=== PATIENT | female | born 1955 | race African-American/Black ===

== ENCOUNTER 2019-04-24 10:16 | Emergency (ER) | payer BC, OTHER ==
--- NOTE | 2019-04-24 11:21 | ER Document Report ---
ED Medical Screen (RME) - General Chief Complaint: Abdominal Pain Stated Complaint: ABDOMINAL PAIN Time Seen by Provider: 04/24/19 11:15 Primary Care Provider: JENN CHOU MD [Primary Care Provider] - Follow up as needed Mode of Arrival: Ambulatory Information source: Patient Notes: 53-year-old female presents to ED for complaint of knot in her gum for a year. Knot to the left side of her upper abdomen. Her abdomen is painful and she is concerned because she has a history of stomach cancer with surgery in 2014. Vomited today with occasional vomiting and she also states she has a vaginal discharge she thinks she has a yeast infection. Denies any fevers at this time. She has a history of blood pressure diabetes type II hip replacement and eye surgery. Drink drinks daily and dips smokeless tobacco but no drug. States she is in the morning she states that blood and she has a history of a cancer treatment in her throat that was cut out. I have greeted and performed a rapid initial assessment of this patient. A comprehensive ED assessment and evaluation of the patient, analysis of test results and completion of medical decision making process will be conducted by an additional ED providers. S - Related Data Allergies/Adverse Reactions: acetaminophen [From Tylenol] Allergy (Verified 02/17/13 23:55) Penicillins Allergy (Verified 02/17/13 23:55) telmisartan [From Micardis] Allergy (Verified 02/17/13 23:55) Tetanus Vaccines and Toxoid [Tetanus] Allergy (Verified 02/17/13 23:52) Past Medical History - Past Medical History Cardiac Medical History: Reports: Hx Hypertension Neurological Medical History: Reports: Hx Migraine Endocrine Medical History: Reports: Hx Diabetes Mellitus Type 2 - Immunizations Hx Diphtheria, Pertussis, Tetanus Vaccination: Yes Physical Exam - Vital signs Vitals: Temp Pulse Resp BP Pulse Ox 98.6 F 123 H 20 219/108 H 97 04/24/19 10:29 04/24/19 10:29 04/24/19 10:04/24/19 10:04/24/19 10:29 Course - Vital Signs Vital signs: Temp Pulse Resp BP Pulse Ox 98.3 F 123 H 13 113/84 100 04/24/19 14:31 04/24/19 10:29 04/24/19 14:26 04/24/19 14:26 04/24/19 14:26 - Laboratory Result Diagrams: 04/24/19 11:36 04/24/19 11:36 Laboratory results interpreted by me: 04/24/19 04/24/19 04/24/19 10:36 11:36 12:48 Sodium 135.5 L Chloride 96 L Glucose 310 H POC Glucose 358 H AST 48 H Urine Protein 100 H Urine Glucose (UA) >=500 H Urine Ketones TRACE H Urine Blood SMALL H Urine Nitrite POSITIVE H Ur Leukocyte Esterase SMALL H Doctor's Discharge - Discharge Clinical Impression: Hypertension, Diabetes, UTI (urinary tract infection) Disposition: HOME, SELF-CARE Instructions: Diabetes ([facility]), Control of Diabetes During Illness ([facility]), Urinary Tract Infection ([facility]) Additional Instructions: Take your medicines as directed. Follow your diabetic diet. Please return here for any problems or any concerns. Prescriptions: Cephalexin Monohydrate [Keflex 500 mg Capsule] 500 mg PO TID #30 capsule Metformin HCl 500 mg PO BID #60 tablet Atenolol [Tenormin] 25 mg PO DAILY #30 tablet Referrals: JENN CHOU MD [Primary Care Provider] - Follow up as needed
[2019-04-24] MEDS ORDERED: NORMAL SALINE 1000 ML 1,000 ML IV ONE (11:22)
[2019-04-24] MEDS ORDERED: ONDANSETRON HCL INJ/PF 4 MG/2 ML SDV IV ONE (11:22)
[2019-04-24] MEDS ORDERED: METOPROLOL SUCCINATE 25 MG TAB.SR.24H PO ONE (11:50)
[2019-04-24] MEDS ORDERED: HYDRALAZINE HCL INJ/PF 20 MG/1 ML SDV IV ONE (11:51)
[2019-04-24 11:56] LABS: ABSOLUTE LYMPHOCYTES (AUTO) 1.6 10^3/uL (0.5-4.7); ABSOLUTE MONOCYTES (AUTO) 0.5 10^3/uL (0.1-1.4); ABSOLUTE NEUT (AUTO) 5.4 10^3/uL (1.7-8.2); BASOPHILS % (AUTO) 0.6 % (0-2); EOSINOPHILS % (AUTO) 0.1 % (0-6); HEMATOCRIT 41.5 % (36.0-47.0); HEMOGLOBIN 14.2 g/dL (12.0-15.5); LYMPHOCYTES % (AUTO) 21.1 % (13-45); MEAN CORPUSCULAR HEMOGLOBIN 30.8 pg (27.0-33.4); MEAN CORPUSCULAR HGB CONC 34.1 g/dL (32.0-36.0); MEAN CORPUSCULAR VOLUME 90 fl (80-97); MONOCYTES % (AUTO) 6.4 % (3-13); PLATELET COUNT 278 10^3/uL (150-450); RED CELL DISTRIBUTION WIDTH 11.8 % (11.5-14.0); SEGMENTED NEUTROPHILS % (AUTO) 71.8 % (42-78); TOTAL CELLS COUNTED % (AUTO) 100 %; VENOUS BLOOD BASE EXCESS 0.6 mmol/L; VENOUS BLOOD HCO3 25.7 mmol/L (20-32); VENOUS BLOOD PCO2 42.9 mmHg (35-63); VENOUS BLOOD PH 7.4 (7.30-7.42); WHITE BLOOD COUNT 7.6 10^3/uL (4.0-10.5)
--- NOTE | 2019-04-24 11:57 | ER Document Report ---
ED General - General Chief Complaint: Abdominal Pain Stated Complaint: ABDOMINAL PAIN Time Seen by Provider: 04/24/19 11:15 Primary Care Provider: JENN CHOU MD [Primary Care Provider] - Follow up as needed Mode of Arrival: Ambulatory Information source: Patient - HPI Patient complains to provider of: luq pain Onset: Other - for "some time" Context: 63 year old female with h/o head and neck cancer, stomach cancer, htn, dm has had increasing pain at left costal margin. She has been out of her medicines for about a year and the left sided pain has been worsening. Chews tobacco and drinks etoh. No fever or chills. Sugery for head and neck and stomach were at [facility]. Exacerbated by: Denies Relieved by: Denies - Related Data Allergies/Adverse Reactions: acetaminophen [From Tylenol] Allergy (Verified 02/17/13 23:55) Penicillins Allergy (Verified 02/17/13 23:55) telmisartan [From Micardis] Allergy (Verified 02/17/13 23:55) Tetanus Vaccines and Toxoid [Tetanus] Allergy (Verified 02/17/13 23:52) Past Medical History - General Information source: Patient - Social History Smoking Status: Never Smoker Chew tobacco use (# tins/day): Yes Frequency of alcohol use: Heavy Drug Abuse: None Family History: None Patient has suicidal ideation: No Patient has homicidal ideation: No - Past Medical History Cardiac Medical History: Reports: Hx Hypertension Neurological Medical History: Reports: Hx Migraine Endocrine Medical History: Reports: Hx Diabetes Mellitus Type 2 - Immunizations Hx Diphtheria, Pertussis, Tetanus Vaccination: Yes Review of Systems - Review of Systems Constitutional: No symptoms reported EENT: No symptoms reported Cardiovascular: See HPI Respiratory: No symptoms reported Gastrointestinal: See HPI Genitourinary: No symptoms reported Female Genitourinary: No symptoms reported Musculoskeletal: No symptoms reported Skin: No symptoms reported Hematologic/Lymphatic: No symptoms reported Neurological/Psychological: No symptoms reported Physical Exam - Vital signs Vitals: Temp Pulse Resp BP Pulse Ox 98.6 F 123 H 20 219/108 H 97 04/24/19 10:29 04/24/19 10:29 04/24/19 10:29 04/24/19 10:29 04/24/19 10:29 Interpretation: Normal - General General appearance: Appears well, Alert - HEENT Head: Normocephalic, Atraumatic Eyes: Normal Pupils: PERRL - Respiratory Respiratory status: No respiratory distress Chest status: Nontender Breath sounds: Normal Chest palpation: Normal - Cardiovascular Rhythm: Regular Heart sounds: Normal auscultation Murmur: No - Abdominal Inspection: Normal Distension: No distension Bowel sounds: Normal Tenderness: Nontender Organomegaly: No organomegaly - Back Back: Normal, Nontender - Extremities General upper extremity: Normal inspection, Nontender, Normal color, Normal ROM, Normal temperature General lower extremity: Normal inspection, Nontender, Normal color, Normal ROM, Normal temperature, Normal weight bearing. No: Lisandro's sign - Neurological Neuro grossly intact: Yes Cognition: Normal Orientation: AAOx4 Patrizia Coma Scale Eye Opening: Spontaneous [place] Coma Scale Verbal: Oriented [place] Coma Scale Motor: Obeys Commands Patrizia Coma Scale Total: 15 Speech: Normal Motor strength normal: LUE, RUE, LLE, RLE Sensory: Normal - Psychological Associated symptoms: Normal affect, Normal mood - Skin Skin Temperature: Warm Skin Moisture: Dry Skin Color: Normal Course - Re-evaluation Re-evalutation: 04/24/19 14:13 MDM Poorly controlled BP and DM with nitrite + UTI. Discussed follow up and she expressed understanding. Fredericugher is here and will help with that. I feel she can reasonably be discharged. She expressed understanding of the discharge plan. - Vital Signs Vital signs: Temp Pulse Resp BP Pulse Ox 98.3 F 123 H 13 113/84 100 04/24/19 14:31 04/24/19 10:29 04/24/19 14:26 04/24/19 14:26 04/24/19 14:26 - Laboratory Result Diagrams: 04/24/19 11:36 04/24/19 11:36 Laboratory results interpreted by me: 04/24/19 04/24/19 04/24/19 10:36 11:36 12:48 Sodium 135.5 L Chloride 96 L Glucose 310 H POC Glucose 358 H AST 48 H Urine Protein 100 H Urine Glucose (UA) >=500 H Urine Ketones TRACE H Urine Blood SMALL H Urine Nitrite POSITIVE H Ur Leukocyte Esterase SMALL H - EKG Interpretation by Ar EKG shows normal: Sinus rhythm Rate: Tachycardia Rhythm: Other - Sinus Tachy Additional EKG results interpreted by me: 04/24/19 12:37 Sinus tachy [address] elevation or depression my interpretation. 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 Follow your diabetic diet. Please return here for any problems or any concerns. Prescriptions: Cephalexin Monohydrate [Keflex 500 mg Capsule] 500 mg PO TID #30 capsule Metformin HCl 500 mg PO BID #60 tablet Atenolol [Tenormin] 25 mg PO DAILY #30 tablet Referrals: JENN CHOU MD [Primary Care Provider] - Follow up as needed
[2019-04-24 12:01] LABS: INTERNATIONAL RATION (INR) 0.95; PROTHROMBIN TIME 12.6 SEC (11.4-15.4)
[2019-04-24 12:12] LABS: ALBUMIN 4.4 g/dL (3.5-5.0); ALKALINE PHOSPHATASE 125 U/L (38-126); ANION GAP 12 (5-19); ASPARTATE AMINO TRANSFERASE 48 U/L (14-36); BILIRUBIN,DIRECT 0.3 mg/dL (0.0-0.4); BILIRUBIN,TOTAL 0.9 mg/dL (0.2-1.3); BLOOD UREA NITROGEN 16 mg/dL (7-20); CALCIUM 9.3 mg/dL (8.4-10.2); CARBON DIOXIDE 28 mmol/L (22-30); CHLORIDE 96 mmol/L (98-107); GLUCOSE 310 mg/dL (75-110); POTASSIUM 4.5 mmol/L (3.6-5.0); TOTAL PROTEIN 7.9 g/dL (6.3-8.2)
[2019-04-24 12:15] LABS: APPEARANCE,URINE SLIGHTLY-CLOUDY; BILIRUBIN,URINE NEGATIVE (NEGATIVE); COLOR,URINE YELLOW; GLUCOSE, URINE >=500 mg/dL (NEGATIVE); KETONES,URINE TRACE mg/dL (NEGATIVE); LEUKOCYTE ESTERASE,URINE SMALL (NEGATIVE); NITRITE,URINE POSITIVE (NEGATIVE); PROTEIN,URINE 100 mg/dL (NEGATIVE); URINE SPECIFIC GRAVITY 1.028; UROBILINOGEN,URINE NEGATIVE mg/dL (<2.0)
[2019-04-24] MEDS ORDERED: CEFTRIAXONE 1 GM/D5W RTU 1 GM/50 ML RTUPB IV ONE (12:34)
[2019-04-24] MEDS ORDERED: INSULIN REG, HUMAN 100 UNIT/ML 3 ML VIAL (PYX) IV ONE (12:35)
--- NOTE | 2019-04-24 12:51 | RADIOLOGY REPORT (SQ) ---
EXAM DESCRIPTION: CHEST SINGLE VIEW COMPLETED DATE/TIME: 04/24/2019 12:34 pm REASON FOR STUDY: htn COMPARISON: None. EXAM PARAMETERS: NUMBER OF VIEWS: One view. TECHNIQUE: Single frontal radiographic view of the chest acquired. RADIATION DOSE: NA LIMITATIONS: None. FINDINGS: LUNGS AND PLEURA: No opacities, masses or pneumothorax. No pleural effusion. MEDIASTINUM AND HILAR STRUCTURES: No masses. Contour normal. HEART AND VASCULAR STRUCTURES: Heart normal in size. Normal vasculature. BONES: No acute findings. HARDWARE: None in the chest. OTHER: No other significant finding. IMPRESSION: NO ACUTE RADIOGRAPHIC FINDING IN THE CHEST. TECHNICAL DOCUMENTATION: JOB ID: [id number] [employer]- All Rights Reserved Reading location - IP/workstation name: [email or web address]
[2019-04-24 14:32] VITALS: BP 113/84
--- NOTE | 2019-04-25 18:39 | EKG REPORT ---
SEVERITY:- OTHERWISE NORMAL ECG - SINUS TACHYCARDIA : Confirmed by: Kush Bolaños 25-Apr-2019 18:38:27
== END 2019-04-24 14:31 | disposition home or self-care (01) ==
LOC: ER 10:16
DX: N30.01 Acute cystitis with hematuria (principal); E11.65 Type 2 diabetes mellitus with hyperglycemia; R00.0 Tachycardia, unspecified; I10 Essential (primary) hypertension; Z72.0 Tobacco use; Z88.8 Allergy status to other drugs, medicaments and biological substances; Z88.0 Allergy status to penicillin; Z88.7 Allergy status to serum and vaccine
CPT/HCPCS: 93005; 99284; 96361; 96374; 96375; 86900; 86901; 36415; 87040; 87086; 86850; 82962; 83690; 85025; 85610; 87088; 80053; 81001; 84484; 87186; 82803; 83605; 71045; 93010; J0360; J1815; J2405; J7030; J0696

== ENCOUNTER 2020-03-25 11:42 | Emergency (ER) | payer OTHER ==
[2020-03-25 12:51] LABS: ABSOLUTE BASOPHILS # (AUTO) 0.1 10^3/uL (0.0-0.2); ABSOLUTE LYMPHOCYTES (AUTO) 2.6 10^3/uL (0.5-4.7); ABSOLUTE MONOCYTES (AUTO) 0.3 10^3/uL (0.1-1.4); ABSOLUTE NEUT (AUTO) 2.7 10^3/uL (1.7-8.2); BASOPHILS % (AUTO) 1.2 % (0-2); EOSINOPHILS % (AUTO) 0.3 % (0-6); HEMATOCRIT 38.8 % (36.0-47.0); HEMOGLOBIN 13.3 g/dL (12.0-15.5); LYMPHOCYTES % (AUTO) 46.1 % (13-45); MEAN CORPUSCULAR HEMOGLOBIN 31.7 pg (27.0-33.4); MEAN CORPUSCULAR HGB CONC 34.3 g/dL (32.0-36.0); MEAN CORPUSCULAR VOLUME 92 fl (80-97); MONOCYTES % (AUTO) 5.5 % (3-13); PLATELET COUNT 317 10^3/uL (150-450); RED CELL DISTRIBUTION WIDTH 12.6 % (11.5-14.0); SEGMENTED NEUTROPHILS % (AUTO) 46.9 % (42-78); TOTAL CELLS COUNTED % (AUTO) 100 %; WHITE BLOOD COUNT 5.7 10^3/uL (4.0-10.5)
[2020-03-25 12:58] LABS: APPEARANCE,URINE CLEAR; BILIRUBIN,URINE NEGATIVE (NEGATIVE); COLOR,URINE YELLOW; GLUCOSE, URINE 50 mg/dL (NEGATIVE); KETONES,URINE NEGATIVE (NEGATIVE); LEUKOCYTE ESTERASE,URINE NEGATIVE (NEGATIVE); NITRITE,URINE NEGATIVE (NEGATIVE); PROTEIN,URINE NEGATIVE (NEGATIVE); URINE SPECIFIC GRAVITY 1.004; UROBILINOGEN,URINE NEGATIVE mg/dL (<2.0)
[2020-03-25 13:09] LABS: ALBUMIN 4.2 g/dL (3.5-5.0); ALKALINE PHOSPHATASE 116 U/L (38-126); ANION GAP 10 (5-19); ASPARTATE AMINO TRANSFERASE 50 U/L (14-36); BILIRUBIN,TOTAL 0.5 mg/dL (0.2-1.3); BLOOD UREA NITROGEN 9 mg/dL (7-20); CALCIUM 8.9 mg/dL (8.4-10.2); CARBON DIOXIDE 24 mmol/L (22-30); CHLORIDE 98 mmol/L (98-107); GLUCOSE 245 mg/dL (75-110); POTASSIUM 3.8 mmol/L (3.6-5.0); TOTAL PROTEIN 8.3 g/dL (6.3-8.2)
--- NOTE | 2020-03-25 15:00 | RADIOLOGY REPORT (SQ) ---
EXAM DESCRIPTION: ACUTE ABDOMEN SERIES IMAGES COMPLETED DATE/TIME: 03/25/2020 2:41 pm REASON FOR STUDY: cough/diarrhea COMPARISON: None. NUMBER OF VIEWS: Three views. TECHNIQUE: Frontal chest, supine abdomen and upright/decubitus abdomen radiographic images acquired. LIMITATIONS: None. FINDINGS: CHEST: The heart is not enlarged. No consolidation, pleural effusion or pneumothorax. FREE AIR: None. BOWEL GAS PATTERN: Nonobstructive pattern. No dilated loops or air fluid levels. CALCIFICATIONS: No suspicious calcifications. HARDWARE: None in the abdomen. SOFT TISSUES: No gross mass or suggestion of organomegaly. BONES: Status post total right hip arthroplasty. Degenerative changes at the spine. IMPRESSION: Nonobstructive bowel gas pattern. TECHNICAL DOCUMENTATION: JOB ID: [id number] [employer]- All Rights Reserved Reading location - IP/workstation name: [email or web address]
--- NOTE | 2020-03-25 16:50 | ER Document Report ---
Entered by TERESA CARTWRIGHT SCRIBE 03/25/20 1418 Acting as scribe for:CLAYTON BYNUM MD ED GI/ - General Chief Complaint: Diarrhea Stated Complaint: DIARRHEA,ABDOMINAL PAIN,VOMITING Time Seen by Provider: 03/25/20 11:57 Primary Care Provider: JENN CHOU MD [Primary Care Provider] - Follow up as needed Information source: Patient Notes: This 64 year old female patient presents to the emergency department today with complaints of abdominal pain. Patient states she has a history of chronic abdominal pain and N/V/D for years. Patient states this episode began x1 week ago. Patient reports diarrhea and states this morning she saw worms, or "something crawling", when wiping after a bowel movement. Patient states she had beer this morning. Patient reports a cough this morning and thinks she saw blood. Denies any fever, chills, or chest pain. - Related Data Allergies/Adverse Reactions: acetaminophen [From Tylenol] Allergy (Verified 02/17/13 23:55) Penicillins Allergy (Verified 02/17/13 23:55) telmisartan [From Micardis] Allergy (Verified 02/17/13 23:55) Tetanus Vaccines and Toxoid [Tetanus] Allergy (Verified 02/17/13 23:52) Past Medical History - General Information source: Patient - Social History Smoking Status: Current Every Day Smoker Cigarette use (# per day): Yes Frequency of alcohol use: Heavy Family History: None - Past Medical History Cardiac Medical History: Reports: Hx Hypertension Neurological Medical History: Reports: Hx Migraine Endocrine Medical History: Reports: Hx Diabetes Mellitus Type 2 - Immunizations Hx Diphtheria, Pertussis, Tetanus Vaccination: Yes Review of Systems - Review of Systems Constitutional: See HPI. denies: Chills, Fever EENT: No symptoms reported Cardiovascular: See HPI. denies: Chest pain Respiratory: See HPI, Cough Gastrointestinal: See HPI, Abdominal pain, Diarrhea, Nausea, Vomiting, Last bowel movement - this morning Genitourinary: No symptoms reported Female Genitourinary: No symptoms reported Musculoskeletal: No symptoms reported Skin: No symptoms reported Hematologic/Lymphatic: No symptoms reported Neurological/Psychological: No symptoms reported -: Yes All other systems reviewed and negative Physical Exam - Vital signs Vitals: Temp Pulse Resp BP Pulse Ox 97.5 F 132 H 20 220/122 H 100 03/25/20 11:48 03/25/20 11:48 03/25/20 11:48 03/25/20 11:48 03/25/20 11:48 - General General appearance: Appears well, Alert In distress: None - HEENT Head: Normocephalic, Atraumatic Eyes: Normal Pupils: PERRL - Respiratory Respiratory status: No respiratory distress Chest status: Nontender Breath sounds: Normal Chest palpation: Normal - Cardiovascular Rhythm: Regular Heart sounds: Normal auscultation Murmur: No - Abdominal Inspection: Normal, Other - Soft Distension: No distension Bowel sounds: Normal Tenderness: Nontender - Extremities General upper extremity: Normal inspection. No: Edema General lower extremity: Normal inspection. No: Edema - Neurological Neuro grossly intact: Yes Cognition: Normal Orientation: AAOx4 Speech: Normal - Psychological Associated symptoms: Normal affect, Normal mood - Skin Skin Temperature: Warm Skin Moisture: Dry Skin Color: Normal Course - Re-evaluation Re-evalutation: 03/25/20 15:43 Patient resting comfortably no signs of distress. - Vital Signs Vital signs: Temp Pulse Resp BP Pulse Ox 97.5 F 132 H 20 220/122 H 100 03/25/20 11:48 03/25/20 11:48 03/25/20 11:48 03/25/20 11:48 03/25/20 11:48 - Laboratory Result Diagrams: 03/25/20 12:15 03/25/20 12:15 Laboratory results interpreted by me: 03/25/20 03/25/20 03/25/20 12:15 12:15 12:15 Lymph % (Auto) 46.1 H Sodium 131.6 L Glucose 245 H AST 50 H Total Protein 8.3 H Urine Glucose (UA) 50 H 03/25/20 16:38 Abnormal labs shows blood sugar 245. Total protein of 8.3 - Diagnostic Test Radiology reviewed: Image reviewed, Reports reviewed Radiology results interpreted by mi: 03/25/20 16:40 Acute abdominal series shows no acute process. Discharge - Discharge Clinical Impression: Abdominal pain, Diarrhea, Type 2 diabetes mellitus with hyperglycemia, Hypert ension, Ascariasis, unspecified Condition: Stable Disposition: HOME, SELF-CARE Instructions: Abdominal Pain ([facility]) Additional Instructions: Hyperglycemia (High Blood Sugar) You have an abnormally high blood sugar. Not all high blood sugar requires long-term treatment. High blood sugar can be due to medications, , or the stress of illness. (These cases are "borderline diabetes.") If the doctor feels your high blood sugar might resolve with time, you may not require treatment now. You will be scheduled for further evaluation. It's very important that you follow through, to see if the blood sugar returns to normal levels. Uncontrolled high blood sugar leads to early heart disease, strokes, nerve damage, eye damage, and kidney damage. Call the physician if there is faintness, excess sleepiness, or very rapid breathing.You report that you saw worms in your stool today therefore we will put you on a medication that should control that problem for you we have we have created a prescription for you to take to your pharmacy significant take a appropriate medication. Your stool has been sent to the lab for testing for C. difficile, ova and parasites, and stool culture. Prescriptions: Mebendazole [Emverm] 100 mg PO ONCE #1 tab.chew Metformin HCl [Glucophage 500 mg Tablet] 500 mg PO BID #60 tablet Metoprolol Tartrate [Lopressor 50 mg Tablet] 50 mg PO DAILY #30 tablet Forms: Elevated Blood Pressure Referrals: JENN CHOU MD [Primary Care Provider] - Follow up as needed I personally performed the services described in the documentation, reviewed and edited the documentation which was dictated to the scribe in my presence, and it accurately records my words and actions.
[2020-03-25 17:15] VITALS: BP 200/110
[2020-03-25 19:53] LABS: C DIFFICILE GDH NEGATIVE (NEGATIVE)
== END 2020-03-25 17:15 | disposition home or self-care (01) ==
LOC: ER 11:42
DX: E11.65 Type 2 diabetes mellitus with hyperglycemia (principal); B77.9 Ascariasis, unspecified; R19.7 Diarrhea, unspecified; I10 Essential (primary) hypertension; R10.9 Unspecified abdominal pain; R11.10 Vomiting, unspecified; F17.210 Nicotine dependence, cigarettes, uncomplicated; Z88.0 Allergy status to penicillin; Z88.6 Allergy status to analgesic agent
CPT/HCPCS: 36415; 74022; 80053; 81001; 83690; 85025; 87045; 87177; 87205; 87324; 87449; 99284